=== PATIENT | male | born 1950 | race Caucasian/White ===

== ENCOUNTER 2019-02-03 07:55 | Day surgery (SDC) | payer MEDICARE, BC ==
[~2019-02-03 07:55] MED LIST: Lactated Ringers 1,000 ML IV SCH
[2019-02-03] MEDS ORDERED: Propofol 200 MG/20 ML SDV ONE (09:19)
[2019-02-03] MEDS ORDERED: fentaNYL 100 MCG/2 ML SDV ONE (09:19)
--- NOTE | 2019-02-03 16:01 | OR ---
DATE OF SURGERY: 02/03/2019. REFERRING PROVIDER: Brittany Aponte DO. PRE-OPERATIVE DIAGNOSES: 1. Screening colonoscopy. 2. Positive family history of colon cancer in father in his mid 80s and a paternal uncle in his 60s. The patient's last colonoscopy was 5 years ago and was normal. POST-OPERATIVE DIAGNOSES: 1. Moderate left-sided diverticulosis. 2. Otherwise normal distal ileum and normal colon. PROCEDURE: Colonoscopy. SURGEON: Carlos Guzman M.D. ANESTHESIA: Monitored anesthesia care. BOWEL PREP: Fair to good. Dallin is a 68-year-old male who was brought to the endoscopy suite after discussing risks and benefits of the procedure. Informed consent was obtained for conscious sedation and colonoscopy with or without biopsy and/or polypectomy. We also discussed possibility of missed lesions. Pre-procedure exam was unremarkable. IV, oxygen, and monitors were placed. The patient was placed in the left lateral decubitus position. Sedation was administered and a digital rectal exam was performed and unremarkable. Colonoscope was passed into the rectum and slowly advanced all the way to the cecum. Cecum was viewed and photographed. Ileocecal valve was intubated and distal ileum was normal in appearance. Colonoscope was slowly withdrawn. Mucosa closely observed in direct circumferential manner. The colonoscope was slowly withdrawn and the mucosa was closed observed in a direct circumferential manner. The ascending colon was unremarkable. The transverse colon was unremarkable. The descending and sigmoid colon revealed moderate diverticulosis. Retroflexion was performed and rectal mucosa was unremarkable. Scope was removed. The patient tolerated the procedure well. The patient was monitored until that baseline status. Discharge instructions were reviewed and the patient was discharged in good condition. COMPLICATIONS: None. TOTAL TIME: 21 minutes. ESTIMATED BLOOD LOSS: None. RECOMMENDATIONS/FOLLOW-UP: Recommend repeat colonoscopy in 5 years given the positive family history of colon cancer. I would like to kindly thank Brittany Aponte for this referral. DMB: 02/03/2019 11:08:18 MODL: 02/03/2019 15:49:57 /[id number]
== END 2019-02-03 12:30 | disposition home or self-care (01) ==
LOC: VM.SDS 07:55
PROVIDERS: ATTEND Family Medicine
DX: Z12.11 Encounter for screening for malignant neoplasm of colon (principal); K57.30 Diverticulosis of large intestine without perforation or abscess without bleeding; I10 Essential (primary) hypertension; K21.9 Gastro-esophageal reflux disease without esophagitis; M10.9 Gout, unspecified; G62.9 Polyneuropathy, unspecified; E78.2 Mixed hyperlipidemia; Z80.0 Family history of malignant neoplasm of digestive organs; Z79.82 Long term (current) use of aspirin; Z79.899 Other long term (current) drug therapy
CPT/HCPCS: G0105; J2704; J3010; J7120

== ENCOUNTER 2024-07-22 08:30 | Day surgery (SDC) | payer MEDICARE, BC ==
[2024-07-22] MEDS: Lactated Ringers 1,000 ML IV SCH (08:50)
[2024-07-22] MEDS ORDERED: fentaNYL 100 MCG/2 ML SDV ONE (11:04)
[2024-07-22] MEDS ORDERED: Propofol 200 MG/20 ML SDV ONE (11:13)
[2024-07-22] MEDS ORDERED: ePHEDrine 50 MG/ML SDV ONE (11:47)
== END 2024-07-22 13:00 | disposition home or self-care (01) ==
LOC: VM.SDS 08:30
PROVIDERS: ATTEND Student in an Organized Health Care Education/Training Program
DX: Z12.11 Encounter for screening for malignant neoplasm of colon (principal); D12.3 Benign neoplasm of transverse colon; I10 Essential (primary) hypertension; E66.9 Obesity, unspecified; Z80.0 Family history of malignant neoplasm of digestive organs; E78.2 Mixed hyperlipidemia; Z79.82 Long term (current) use of aspirin; Z79.899 Other long term (current) drug therapy
CPT/HCPCS: 00811; 88305; J2704; J3010; J3490; J7120